=== PATIENT | female | born 1995 | race Caucasian/White ===

== ENCOUNTER 2019-02-20 10:21 | Outpatient (CLI) | payer OTHER ==
--- NOTE | 2019-02-20 13:55 | CT ---
EXAM: POSTCONTRAST SOFT TISSUE NECK CT: 02/20/19 HISTORY: Disease of the salivary gland. Possible mass in the right side of the neck. COMPARISON: None. FINDINGS: The visualized brain parenchyma and orbits are unremarkable. Aerodigestive tract is patent. No eviden ce of a mucosal abnormality. Evaluation of the oral cavity is limited due to motion. Symmetric attenuation of the parotid and submandibular glands. Unremarkable thyroid gland. Symmetric attenuation of the sternocleidomastoid muscles. Grossly, the great vessels of the neck are patent. No evidence of lymphadenopathy by size criteria. Central spinal canal and neural foramina are patent. Vertebral body height is maintained. No fracture . Straightening of the normal cervical lordosis may be due to positioning. Upper mediastinum and lung apices are unremarkable. At the level of palpable marker, there is a well-circumscribed, slightly hyperdense lesion which may be posterior and inferior to the right thyroid lobe. Questionable fat plane suggesting an extraparoti d lesion measuring 1.2 x 0.9 cm. Second consideration could be an exophytic intraparotid lesion. Limi jenny evaluation due to motion. IMPRESSION: Enhancing mass at the level palpable marker which may represent an extraparotid lesion. Possibility o f an enlarged lymph node cannot be completely excluded. Second consideration could be an intraparotid lesion that is exophytic. Evaluation is limited due to motion degradation at this level. Correlate c linically. Further evaluation with MRI if clinically warranted. POS: KLEBER
== END 2019-02-20 10:22 | disposition home or self-care (01) ==
LOC: CT 10:21
PROVIDERS: ATTEND Otolaryngology Plastic Surgery within the Head & Neck
DX: K11.9 Disease of salivary gland, unspecified (principal)
CPT/HCPCS: 70491

== ENCOUNTER 2019-04-03 06:04 | Day surgery (SDC) | payer OTHER ==
[2019-04-02 12:09] VITALS: BMI 23.6
[~2019-04-03 06:04] MED LIST: Fentanyl 100 MCG/2 ML VIAL ONE; Propofol 1,000 MG/100 ML VIAL IV ONE
[2019-04-03] MEDS ORDERED: Bacitracin Zinc Ointment 30 gm TUBE ONE (06:21)
[2019-04-03] MEDS ORDERED: Lidocaine 1% w/Epinephrine 1:100K 20 ML VIAL ONE (06:21)
[2019-04-03] MEDS ORDERED: Midazolam HCl 2 mg/2 ml Vial ONE (07:03)
[2019-04-03] MEDS ORDERED: SUGAMMADEX SODIUM 200 MG/2 ML VIAL ONE (07:20)
[2019-04-03] MEDS ORDERED: Dexamethasone 20 MG/5 ML VIAL ONE (07:30)
[2019-04-03] MEDS ORDERED: Lidocaine 1% PF 5 ML VIAL ONE (07:30)
[2019-04-03] MEDS ORDERED: Ondansetron PF 4 MG/2 ML Vial ONE (07:30)
[2019-04-03] MEDS ORDERED: PROPOFOL 200 MG/20 ML VIAL ONE (07:30)
[2019-04-03] MEDS ORDERED: Rocuronium Bromide 10 MG/ML (10ML VIAL) ONE (07:30)
--- NOTE | 2019-04-04 11:19 | OP ---
DATE OF PROCEDURE: 04/03/2019 PREOPERATIVE DIAGNOSIS: Right parotid mass. POSTOPERATIVE DIAGNOSIS: Right parotid mass. PROCEDURE PERFORMED: Right superficial parotidectomy with facial nerve monitor. ESTIMATED BLOOD LOSS: Less than 5 mL. COMPLICATIONS: None. ANESTHESIA: GETA. DESCRIPTION OF PROCEDURE: The patient was taken to the operating room and placed on the table. General endotracheal anesthesia was obtained by the Anesthesia Staff. Tube was secured in the left lower lip. Following this, the shoulder roll was placed and the head was gently tilted away exposing the right parotid gland. 8 mL of 1% lidocaine with 1:100,000 epinephrine was injected into the previously marked modified Kulwant-type incision. Following this, a 15 blade was used to make an incision in the preauricular crease and then extending around the earlobe approximately 1 cm and then connecting to a horizontal neck incision approximately 2 cm below the angle of the mandible. Skin and subcutaneous dissection were performed with the Bovie electrocautery as fat down flap was elevated over the parotid gland. The sternocleidomastoid muscle was identified and the gland was freed from this area. Dissection was then carried down the tragal cartilage to the tympanomastoid suture line. The facial nerve was identified and the inferior branch of the facial nerve was coursed laterally. A 1.5-cm lymph node with fibrotic changes around it was encountered. This lymph node along with a normal cuff of parotid tissue was removed while protecting the facial nerve. Following this, the wound was irrigated and the wound was closed after a small drain was placed. The parotid fascia and subcutaneous tissue were closed using 4-0 and 5-0 nylon. The skin was closed using 4-0 and 5-0 Prolene stitches. The facial nerve monitor, which was previously setup and inserted into the orbicularis russell and orbicularis oculi and remained on throughout the procedure was then turned off and was removed. The patient tolerated the procedure well. Job ID: [id number]
== END 2019-04-03 10:35 | disposition home or self-care (01) ==
LOC: SDC 06:04
PROVIDERS: ATTEND Otolaryngology Plastic Surgery within the Head & Neck
PROC: 0CB80ZZ Excision of Right Parotid Gland, Open Approach (ICD-10-PCS; principal; 2019-04-03)
DX: K11.20 Sialoadenitis, unspecified (principal); Z88.0 Allergy status to penicillin
CPT/HCPCS: 88184; 88307; 88312; J1100; J2001; J2250; J2405; J2704; J3010

== ENCOUNTER 2023-02-01 05:50 | Day surgery (SDC) | payer BC ==
[2023-01-30 09:12] VITALS: BMI 25.1
[2023-02-01] MEDS ORDERED: HYDROmorphone 0.5 MG/0.5 ML SYRINGE ONE (05:59)
[2023-02-01] MEDS ORDERED: fentaNYL PF 100 MCG/2 ML SYRINGE ONE (05:59)
[2023-02-01] MEDS ORDERED: Midazolam HCl 2 mg/2 ml Vial ONE (05:59)
[2023-02-01] MEDS ORDERED: SUGAMMADEX SODIUM 200 MG/2 ML VIAL ONE (06:05)
[2023-02-01] MEDS ORDERED: Propofol 1,000 MG/100 ML VIAL IV ONE (06:05)
[2023-02-01] MEDS ORDERED: Lidocaine 4% Topical Sol 50 ML BOT ONE (06:17)
[2023-02-01] MEDS ORDERED: Dexamethasone 20 MG/5 ML VIAL ONE (07:50)
[2023-02-01] MEDS ORDERED: Lidocaine 1% PF 5 ML VIAL ONE (07:50)
[2023-02-01] MEDS ORDERED: PROPOFOL 200 MG/20 ML VIAL ONE (07:50)
[2023-02-01] MEDS ORDERED: Ondansetron PF 4 MG/2 ML Vial ONE (07:50)
[2023-02-01] MEDS ORDERED: Ferric Subsulfate (ASTRINGYN) 8 GM VIAL ONE (08:02)
[2023-02-01] MEDS ORDERED: methylPREDNISolone Acetate 40 mg/ml Vial ONE (08:03)
[2023-02-01] MEDS ORDERED: fentaNYL 50 mcg/mL 1 mL Vial ONE ×4 (08:40→09:20)
[2023-02-01] MEDS ORDERED: Hydrocodone-Acetamin 15 ML UDCUP ONE (10:15)
[2023-02-01] MEDS ORDERED: Acetaminophen 325 MG/10.15 ML UDCUP ONE (10:30)
== END 2023-02-01 12:48 | disposition home or self-care (01) ==
LOC: SDC 05:50
PROVIDERS: ATTEND Otolaryngology Plastic Surgery within the Head & Neck
PROC: 0CTPXZZ Resection of Tonsils, External Approach (ICD-10-PCS; principal; 2023-02-01)
PROC: 0CTQXZZ Resection of Adenoids, External Approach (ICD-10-PCS; principal; 2023-02-01)
DX: J35.01 Chronic tonsillitis (principal); J35.3 Hypertrophy of tonsils with hypertrophy of adenoids; G47.33 Obstructive sleep apnea (adult) (pediatric); Z79.899 Other long term (current) drug therapy
CPT/HCPCS: 88304; J1030; J1100; J1170; J2250; J2405; J2704; J3010